=== PATIENT | female | born 1960 | race Caucasian/White ===

== ENCOUNTER → 2016-04-17 | Outpatient (REF) | payer OTHER ==
[~2016-04-17] MED LIST: DIAZ5SOL PO; ESTR2TAB PO; LIPI10TA PO; PROP10TAB PO; TYLE325T5 PO
== END ==
LOC: M SFHCLERA 17:42
PROVIDERS: ATTEND Nurse Practitioner Family
DX: J02.9 Acute pharyngitis, unspecified (principal)

== ENCOUNTER → 2016-09-22 | Outpatient (REF) | payer OTHER | LOC: M SFHCLERA 11:56 | PROVIDERS: ATTEND Nurse Practitioner Family | DX: J35.8 Other chronic diseases of tonsils and adenoids (principal) ==

== ENCOUNTER → 2017-02-07 | Outpatient (CLI) | payer OTHER ==
--- NOTE | 2017-02-08 10:33 | REP ---
CHEST PA AND LATERAL: 02/07/2017: Clinical history: Cough and fever for 4 days. Findings: There are no prior pertinent studies. Patchy right upper lobe suprahilar infiltrates without pleural effusion or dense consolidation. There is some minor subsegmental atelectatic change about the left hilum suggested. No lateral pleural thickening, effusion or apical scar. There is no pneumothorax. Heart, mediastinal and hilar contours normal. Bony thorax unremarkable. No free air. Impression: 1. Some patchy right upper lobe atelectasis and/or infiltrates with some patchy atelectatic change about the left hilum as well. No effusion. Signed by Jewel Carpenter MD 02/08/2017 04:28 P
== END ==
LOC: M LRY 17:19
PROVIDERS: ATTEND Nurse Practitioner Family
DX: R05 Cough (principal); J98.11 Atelectasis

== ENCOUNTER → 2017-09-14 | Outpatient (REF) | payer OTHER | LOC: M SFHCLERA 12:24 | DX: J02.9 Acute pharyngitis, unspecified (principal) ==

== ENCOUNTER → 2018-05-27 | Outpatient (CLI) | payer OTHER ==
--- NOTE | 2018-05-27 16:34 | REP ---
Clinical: Cough . Comparison: 02/07/2017 . Technique: PA and lateral. Findings: The mediastinum and cardiac silhouette are normal. The lung sidhu are clear and without acute consolidation, effusion, or pneumothorax. The skeletal structures are intact and normal. Impression: 1. No acute cardiopulmonary process. Electronically Signed by Devonte Guillaume MD 05/27/2018 04:26 P
== END ==
LOC: M LRY 16:16
PROVIDERS: ATTEND Physician Assistant
DX: R05 Cough (principal)

== ENCOUNTER → 2018-06-27 | Outpatient (REF) | payer OTHER | LOC: M SFHCLERA 15:37 | PROVIDERS: ATTEND Physician Assistant | DX: R50.9 Fever, unspecified (principal) ==

== ENCOUNTER → 2018-07-06 | Outpatient (REF) | payer OTHER ==
[~2018-07-06] MED LIST changes: +ALBU8.5H; +BENZ-18; +FLUTISP; +ONDA4TAB5; +PSEU30TA85 PO
== END ==
LOC: M SFHCLERA 13:16
PROVIDERS: ATTEND Nurse Practitioner Family
DX: R11.2 Nausea with vomiting, unspecified (principal)

== ENCOUNTER 2018-07-07 12:41 | Emergency (ER) | payer OTHER ==
[~2018-07-07] VITALS: Ht 165.1 cm; Wt 63.3 kg
[~2018-07-07 12:41] MED LIST changes: -ALBU8.5H; -BENZ-18; -FLUTISP; -ONDA4TAB5; -PSEU30TA85 PO
[2018-07-07] MEDS ORDERED: BENZ-18 (13:30)
[2018-07-07] MEDS ORDERED: ALBU8.5H (13:30)
[2018-07-07] MEDS ORDERED: FLUTISP (13:30)
[2018-07-07] MEDS ORDERED: PSEU30TA85 PO (13:30)
[2018-07-07] MEDS ORDERED: ONDA4TAB5 (13:30)
[2018-07-07] MEDS ORDERED: ONDANSETRON 4 MG ORAL DISINTEGRATING TAB (Q0162 PER 1MG) PO ONE (13:45)
--- NOTE | 2018-07-07 14:17 | REP ---
ACUTE ABDOMINAL SERIES: Three views. HISTORY: Vomiting. COMPARISON STUDY: May 27, 2018. FINDINGS: Upright chest radiograph is normal. There is no evidence of infiltrate or free subdiaphragmatic air. Heart is not enlarged. Supine and erect views of the abdomen demonstrate a dextroconvex minimal curvature in the lumbar spine. There is air and stool in a nondistended colon proximally and distally. There are one or two loops of air-filled but nondilated small bowel in the central abdomen. No free air is seen. No mass, organomegaly or pathologic calcification is seen. Flank stripes are intact. Psoas margins are symmetric. IMPRESSION: Nonspecific small bowel loops in the central abdomen. No evidence of obstruction or free air. No active disease in the chest. Electronically Signed by Facundo Perales MD 07/07/2018 03:32 P
[2018-07-07 14:33] VITALS: BP 125/57
== END 2018-07-07 14:35 | disposition home or self-care (01) ==
LOC: M ED 12:41
DX: B34.9 Viral infection, unspecified (principal); R11.10 Vomiting, unspecified; I10 Essential (primary) hypertension; E78.00 Pure hypercholesterolemia, unspecified; Z88.1 Allergy status to other antibiotic agents; Z79.899 Other long term (current) drug therapy; Z79.890 Hormone replacement therapy
CPT/HCPCS: 74021; 99283; Q0162

== ENCOUNTER → 2022-09-05 | Outpatient (CLI) | payer BC ==
[~2022-09-05] MED LIST changes: +ALBU8.5H; +BENZ-18; +FLUT50SP17; +ONDA-83; +PSEU30TA86 PO
[2022-09-05 10:40] LABS: RHEUMATOID FACTOR QUANT < 3.5 IU/ML (<14)
[2022-09-05 10:41] LABS: VITAMIN B12 LEVEL 420 PG/ML (211-911)
[2022-09-05 10:42] LABS: FOLATE > 24.0 NG/ML (>5.4)
== END ==
LOC: M LAB 08:21
PROVIDERS: ATTEND Psychiatry & Neurology Neurology
DX: R51.9 Headache, unspecified (principal); E51.9 Thiamine deficiency, unspecified; E53.8 Deficiency of other specified B group vitamins; E53.1 Pyridoxine deficiency; E56.0 Deficiency of vitamin E